=== PATIENT | female | born 1935 | race Caucasian/White ===

== ENCOUNTER → 2024-03-01 11:07 | Outpatient (REF) | payer OTHER, BC, SELFPAY ==
[2024-03-01 11:22] LABS: Hematocrit 42.1 % (37.0-47.0); Hemoglobin 14.9 g/dL (12.0-16.0); Mean Corp Hgb Conc. 35.4 g/dL (33.0-37.0); Mean Corpuscular Volume 93.3 fL (81.0-99.0); Platelet Count 204 10^3/uL (130-400); Red Blood Cell Count 4.51 10^6/uL (4.20-5.40); Red Cell Dist. Width 13.2 % (11.5-14.5); White Blood Cell Count 9.1 10^3/uL (4.8-10.8)
[2024-03-01 11:37] LABS: Blood Urea Nitrogen 21 mg/dl (7-17); Calcium 8.6 mg/dl (8.4-10.2); Carbon Dioxide 24 mmol/L (22-30); Chloride 102 mmol/L (98-107); Glucose 99 mg/dl (70-99); Magnesium 2.1 mg/dl (1.6-2.3); Potassium 4.4 mmol/L (3.5-5.1); Sodium 138 mmol/L (135-145); eGFR > 60.00
== END ==
LOC: OLABN 11:07
PROVIDERS: ATTENDING PHYSICIAN Student in an Organized Health Care Education/Training Program
DX: I48.20 Chronic atrial fibrillation, unspecified (principal)
CPT/HCPCS: 36415; 80048; 83735; 85027

== ENCOUNTER → 2024-03-13 11:28 | Outpatient (REF) | payer OTHER, BC, SELFPAY ==
[2024-03-13 12:04] LABS: Urine Albumin Negative (Neg - Trace); Urine Bilirubin Negative (Negative); Urine Character Slightly Cloudy (Clear); Urine Color Yellow; Urine Glucose Negative (Negative); Urine Ketone Negative (Negative); Urine Leukocyte Trace (Negative); Urine Nitrite Negative (Negative); Urine Occult Blood Negative (Negative); Urine Specific Gravity 1.015 (<1.030); Urine Urobilinogen Negative (Neg - 1+)
[2024-03-13 12:24] LABS: Urine Amorphous Seen; Urine Squamous Cell >30 /LPF (Few)
[2024-03-13 12:25] LABS: Urine Bacteria Few (Negative)
== END ==
LOC: OLABN 11:28
PROVIDERS: ATTENDING PHYSICIAN Student in an Organized Health Care Education/Training Program
DX: R30.9 Painful micturition, unspecified (principal)
CPT/HCPCS: 81003; 81015; 87086

== ENCOUNTER → 2024-03-14 19:10 | Outpatient (REF) | payer OTHER, SELFPAY ==
[2024-03-15 13:22] LABS: Urine Albumin Negative (Neg - Trace); Urine Bilirubin Negative (Negative); Urine Character Clear (Clear); Urine Color Yellow; Urine Glucose Negative (Negative); Urine Ketone Negative (Negative); Urine Leukocyte 1+ (Negative); Urine Nitrite Negative (Negative); Urine Occult Blood Negative (Negative); Urine Urobilinogen Negative (Neg - 1+)
[2024-03-15 14:15] LABS: Urine Amorphous Seen; Urine Squamous Cell >30 /LPF (Few)
[2024-03-15 14:16] LABS: Urine Red Blood Cell 0-2 /HPF (0-2)
== END ==
LOC: OLABN 19:10
PROVIDERS: ATTENDING PHYSICIAN Student in an Organized Health Care Education/Training Program
DX: R30.9 Painful micturition, unspecified (principal); R35.0 Frequency of micturition
CPT/HCPCS: 81003; 81015; 87086

== ENCOUNTER → 2024-03-30 10:52 | Outpatient (REF) | payer MEDICARE, BC, SELFPAY ==
[2024-03-30 13:44] LABS: Urine Albumin Negative (Neg - Trace); Urine Bilirubin Negative (Negative); Urine Character Clear (Clear); Urine Color Yellow; Urine Glucose Negative (Negative); Urine Ketone Negative (Negative); Urine Leukocyte Negative (Negative); Urine Nitrite Negative (Negative); Urine Occult Blood Negative (Negative); Urine Specific Gravity 1.015 (<1.030); Urine Urobilinogen Negative (Neg - 1+)
== END ==
LOC: OLABN 10:52
PROVIDERS: ATTENDING PHYSICIAN Student in an Organized Health Care Education/Training Program
DX: R30.9 Painful micturition, unspecified (principal); R35.0 Frequency of micturition
CPT/HCPCS: 81003; 87086

== ENCOUNTER → 2024-06-16 14:35 | Outpatient (REF) | payer MEDICARE, BC, SELFPAY ==
[2024-06-17 11:30] LABS: Urine Albumin 2+ (Neg - Trace); Urine Bilirubin Negative (Negative); Urine Character Clear (Clear); Urine Color Yellow; Urine Glucose Negative (Negative); Urine Ketone Negative (Negative); Urine Leukocyte 2+ (Negative); Urine Nitrite Negative (Negative); Urine Occult Blood Negative (Negative); Urine Specific Gravity 1.025 (<1.030); Urine Urobilinogen 1+ (Neg - 1+)
[2024-06-17 12:07] LABS: Urine Calcium Oxalate Crystals Present; Urine Squamous Cell >30 /LPF (Few); Urine Urothelial Cell 0-2 /LPF (FEW)
[2024-06-17 12:08] LABS: Urine Bacteria Many (Negative); Urine Red Blood Cell 0-2 /HPF (0-2)
== END ==
LOC: OLABN 14:35
PROVIDERS: ATTENDING PHYSICIAN Student in an Organized Health Care Education/Training Program
DX: R35.0 Frequency of micturition (principal)
CPT/HCPCS: 81003; 81015; 87086

== ENCOUNTER → 2024-06-17 10:25 | Outpatient (REF) | payer MEDICARE, BC, SELFPAY ==
[2024-06-17 12:16] LABS: % Basophils 0.8 % (0-2); % Immature Granulocytes 0.2 % (0-0.5); % Lymphocytes 32.8 % (20.5-51.1); % Monocytes 12.7 % (1.7-9.3); % Neutrophils 51.5 % (42.2-75.2); Absolute Basophils 0.1 10^3/uL (0-0.2); Absolute Eosinophils 0.1 10^3/uL (0-0.7); Absolute Monocytes 0.8 10^3/uL (0.1-0.6); Absolute Neutrophils 3.1 10^3/uL (1.4-6.5); Hemoglobin 13.9 g/dL (12.0-16.0); Mean Corp Hgb Conc. 34.8 g/dL (33.0-37.0); Mean Corpuscular Hgb 33.3 pg (27.0-31.0); Mean Corpuscular Volume 95.7 fL (81.0-99.0); Nucleated Red Blood Cells % 0 %; Platelet Count 182 10^3/uL (130-400); Red Blood Cell Count 4.18 10^6/uL (4.20-5.40); Red Cell Dist. Width 14.6 % (11.5-14.5)
[2024-06-17 12:17] LABS: Blood Urea Nitrogen 14 mg/dl (7-17); Calcium 8.9 mg/dl (8.4-10.2); Carbon Dioxide 25 mmol/L (22-30); Chloride 105 mmol/L (98-107); Glucose 76 mg/dl (70-99); Potassium 4.4 mmol/L (3.5-5.1); Sodium 137 mmol/L (135-145); eGFR > 60.00
== END ==
LOC: OLABN 10:25
PROVIDERS: ATTENDING PHYSICIAN Student in an Organized Health Care Education/Training Program
DX: I48.91 Unspecified atrial fibrillation (principal)
CPT/HCPCS: 36415; 80048; 85025

== ENCOUNTER 2024-07-20 00:56 | Emergency (ER) | payer MEDICARE, BC, SELFPAY ==
[2024-07-20 00:58] VITALS: BP 158/79
[2024-07-20 01:00] VITALS: BP 158/79
[2024-07-20 02:02] VITALS: BP 146/83
--- NOTE | 2024-07-20 02:28 | ED.GENMED ---
History of Present Illness
General
Chief Complaint: Fall
Source: patient, ambulance crew and retirement
Exam Limitations: none
Time Seen by Provider: 07/20/24 01:30
Nursing documentation reviewed up to this point in time: agreed with
History of Present Illness
History of Present Illness:
Patient was walking to bathroom with staff when she fell. Hit back of head on floor. No LOC. Transported to ED via EMS for post fall eval.
Past History
Past History
ED Past Medical History: Psychiatric (Dementia)
Review of Systems
Review of Systems
Allergies reviewed?: Yes
All Other Systems: ROS reviewed and negative except as documented in HPI and ROS
Constitutional: Reports no symptoms
EENT: Reports no symptoms
Respiratory: Reports no symptoms
Cardiac: Reports no symptoms
ABD/GI: Reports no symptoms
: Reports no symptoms
Musculoskeletal: Reports no symptoms
Skin: Reports no symptoms
Neurological: Reports no symptoms
Psychiatric: Reports no symptoms
Phy Exam
General Physical Exam
General Presentation: well appearing and no apparent distress
General age: appears stated age
General Skin: warm and dry
General Habitus: normal
General Mental: alert
Cardiovascular Exam
Cardiovascular Exam: regular rate/rhythm
Pulmonary Exam
Pulmonary Exam: no respiratory distress and chest non tender
Gastrointestinal Exam
Gastrointestinal Exam: normal bowel sounds, non tender, soft, no organomegaly and non distended
Neurological Exam
Neurological Exam: alert, no motor deficits, no sensory deficits and speech normal
Musculoskeletal Exam
Musculoskeletal Exam: full ROM and neuro vasc intact
Skin Exam
Skin Exam: normal color, warm/dry and no rash
Psychiatric Exam
Psychiatric Exam: normal mood/affect
Course
Orders/Labs/Results
Orders:
Orders
07/20/24 01:06
CT Head W/o Iv Contrast Urgent
Comment:
Reason For Exam: head strike on eliquis
07/20/24 01:14
CT Cervical Spine W/o Iv Contr Urgent
Comment:
Reason For Exam: fall with head strike
Vital Signs
Initial and Last Documented VS:
Initial Vital Signs
Temp Pulse Resp BP Pulse Ox
98.6 F 86 16 158/79 97
07/20/24 00:58 07/20/24 00:58 07/20/24 00:58 07/20/24 00:58 07/20/24 00:58
Last Documented Vital Signs
Temp Pulse Resp BP Pulse Ox
98.6 F 74 14 143/71 94
07/20/24 00:58 07/20/24 03:00 07/20/24 03:00 07/20/24 03:00 07/20/24 03:00
*Radiology
Radiology exam reviewed: radiology read reviewed
*Pulse Oximetry
Patient hypoxic: no
*Critical Care Note
Total Time (30-74mins, 75-104mins- exclusive of procedures): Not Applicable
ED Attending Note
-
Portions of this chart may have been created with voice recognition software.� Occasional wrong word or��sound alike� substitutions may have occurred due to the inherent limitations of voice recognition software.
Discharge Plan
Departure
Patient Disposition: Home (Routine Discharge)
Date of Disposition: 07/20/24
Time of Disposition: 03:03
Patient with high blood pressure during this ER visit?: No
Condition: Good
Covid-19: Not Applicable
Discharge Problem:
Head injury
Instructions: Head Injury in Adults (DC)
Prescriptions:
No Action
acetaminophen 325 mg Tablet
650 mg PO BID
donepezil 5 mg Tablet
5 mg PO .0
trazodone 50 mg Tablet
50 mg PO HS
sertraline 50 mg Tablet
75 mg PO .0
Eliquis 5 mg Tablet
5 mg PO BID
Referrals:
Denver Duff DO [Family Provider] - Follow up in 2-3 days
Interventions
Interventions:
*Risk Screen - Suicide Last Done: 07/20/24 00:58
*General Assessment Last Done: 07/20/24 00:58
*Neglect/Abuse Screening Last Done: 07/20/24 01:20
*ED- Fall Risk Assessment Last Done: 07/20/24 01:20
*ED COVID-19 Vaccine History Last Done: 07/20/24 00:58
*Nursing Disposition Last Done: 07/20/24 04:27
ED-Musculoskeletal Assessment Last Done: 07/20/24 01:20
ED- Neurological Assessment Last Done: 07/20/24 01:20
ED-Skin Assessment Last Done: 07/20/24 01:20
Discharge Date and Time
Discharge Date/Time: 07/20/24 04:29
Print Language: SLOVAK
[2024-07-20 03:00] VITALS: BP 143/71
== END 2024-07-20 04:29 ==
LOC: EMR 00:56
PROVIDERS: EMERGENCY PHYSICIAN Emergency Medicine; FAMILY PHYSICIAN Student in an Organized Health Care Education/Training Program
DX: S09.90XA Unspecified injury of head, initial encounter (principal); W19.XXXA Unspecified fall, initial encounter; F03.90 Unspecified dementia, unspecified severity, without behavioral disturbance, psychotic disturbance, mood disturbance, and anxiety; Z79.01 Long term (current) use of anticoagulants
CPT/HCPCS: 99284; 70450; 72125

== ENCOUNTER → 2024-07-20 09:42 | Outpatient (REF) | payer MEDICARE, BC, SELFPAY ==
[2024-07-20 10:00] LABS: % Basophils 0.3 % (0-2); % Eosinophils 1.1 % (0-6); % Immature Granulocytes 0.2 % (0-0.5); % Lymphocytes 28.8 % (20.5-51.1); % Monocytes 11.9 % (1.7-9.3); % Neutrophils 57.7 % (42.2-75.2); Absolute Eosinophils 0.1 10^3/uL (0-0.7); Absolute Lymphocytes 1.9 10^3/uL (1.2-3.4); Absolute Monocytes 0.8 10^3/uL (0.1-0.6); Absolute Neutrophils 3.7 10^3/uL (1.4-6.5); Hematocrit 40.8 % (37.0-47.0); Hemoglobin 14.2 g/dL (12.0-16.0); Mean Corp Hgb Conc. 34.8 g/dL (33.0-37.0); Mean Corpuscular Hgb 33.2 pg (27.0-31.0); Mean Corpuscular Volume 95.3 fL (81.0-99.0); Nucleated Red Blood Cells % 0 %; Platelet Count 166 10^3/uL (130-400); Red Blood Cell Count 4.28 10^6/uL (4.20-5.40); Red Cell Dist. Width 14.3 % (11.5-14.5); White Blood Cell Count 6.5 10^3/uL (4.8-10.8)
[2024-07-20 10:22] LABS: Blood Urea Nitrogen 21 mg/dl (7-17); Carbon Dioxide 27 mmol/L (22-30); Chloride 102 mmol/L (98-107); Glucose 84 mg/dl (70-99); Potassium 4.1 mmol/L (3.5-5.1); Sodium 136 mmol/L (135-145); eGFR > 60.00
[2024-07-20 18:06] LABS: Urine Albumin Negative (Neg - Trace); Urine Bilirubin Negative (Negative); Urine Character Clear (Clear); Urine Color Yellow; Urine Glucose Negative (Negative); Urine Ketone Negative (Negative); Urine Leukocyte 2+ (Negative); Urine Nitrite Negative (Negative); Urine Occult Blood 1+ (Negative); Urine Specific Gravity 1.015 (<1.030); Urine Urobilinogen Negative (Neg - 1+)
[2024-07-20 18:21] LABS: Urine Squamous Cell >30 /LPF (Few)
[2024-07-20 18:22] LABS: Urine Bacteria Few (Negative); Urine Calcium Oxalate Crystals Seen; Urine Red Blood Cell 0-2 /HPF (0-2)
== END ==
LOC: OLABN 09:42
PROVIDERS: ATTENDING PHYSICIAN Student in an Organized Health Care Education/Training Program
DX: I48.20 Chronic atrial fibrillation, unspecified (principal); R53.1 Weakness
CPT/HCPCS: 36415; 80048; 81003; 81015; 85025; 87086

== ENCOUNTER 2025-03-28 11:39 | Emergency (ER) | payer MEDICARE, BC, SELFPAY ==
[2025-03-28 11:43] VITALS: BP 144/82
[2025-03-28 12:06] LABS: Hematocrit 45.3 % (37.0-47.0); Hemoglobin 15.5 g/dL (12.0-16.0); Mean Corp Hgb Conc. 34.2 g/dL (33.0-37.0); Mean Corpuscular Volume 96.8 fL (81.0-99.0); Nucleated Red Blood Cells % 0 %; Platelet Count 172 10^3/uL (130-400); Red Cell Dist. Width 13.7 % (11.5-14.5)
[2025-03-28 12:29] LABS: ALT (SGPT) 16 U/L (0-35); AST (SGOT) 21 U/L (14-36); Albumin 3.8 g/dl (3.5-5.0); Alkaline Phosphatase 53 U/L (38-126); Blood Urea Nitrogen 13 mg/dl (7-17); Calcium 8.9 mg/dl (8.4-10.2); Carbon Dioxide 30 mmol/L (22-30); Chloride 104 mmol/L (98-107); Glucose 97 mg/dl (70-99); Potassium 4.3 mmol/L (3.5-5.1); Sodium 137 mmol/L (135-145); Total Protein 7.0 g/dl (6.3-8.2); eGFR > 60.00
--- NOTE | 2025-03-28 14:45 | ED.GENMED ---
History of Present Illness
General
Chief Complaint: Heart Rate Problem
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
Time Seen by Provider: 03/28/25 12:41
History of Present Illness
History of Present Illness:
Note:
CHIEF COMPLAINT(S)
The patient was brought to the emergency department from a halfway for evaluation, with documented bradycardia at the facility, and confusion.
HISTORY OF PRESENT ILLNESS
The patient is an 89-year-old female who was brought to the emergency department from a halfway with a noted heart rate of 38 beats per minute at the facility. She was described as confused and disoriented, lacking awareness of her current
location and time. The patient seemed confused about the reason for her presence and had no recollection of events leading to her current state. Clinically, no acute distress was noted, and she denied any chest pain, and exhibited no significant
discomfort. Despite confusion, she was alert during the assessment.
PAST MEDICAL AND SURGICAL HISTORY
The patient is under a [place] [facility] with limitations, indicating a Do Not Resuscitate (DNR) order with restricted interventions like IV treatments but not mechanical ventilation. There were stipulations on the limited use
of antibiotics and no artificial nutrition.
PHYSICAL EXAM
General: Alert, confused, disoriented to place and time, not in acute distress.
Cardiovascular: Regular heart rhythm, presence of an S3 heart sound, no significant murmurs.
Musculoskeletal: Lower extremities show no edema, extremities are warm and well-perfused.
Extremities warm and well-perfused
No focal motor deficits
Cranial nerves grossly intact
Abdomen nondistended
PLAN
The patients care is governed by advanced directives indicating limited interventions, including no mechanical ventilation and restricted use of antibiotics. Further plan entails discussions with halfway for patient status and her brother as
per the halfway report.
DIFFERENTIAL DIAGNOSIS
The Differential Diagnosis includes, in no particular order and is not limited to:
1. Bradycardia
2. Delirium
3. Dementia exacerbation
4. Medication side effects
5. Electrolyte imbalance
6. Dehydration
7. Infection (e.g., urinary tract infection, pneumonia)
8. Cardiac arrhythmia
9. Congestive heart failure
10. Hypothyroidism
EKG
My independent EKG interpretation is:
- Rhythm: Ventricular paced rhythm
- Arrhythmias: Occasional premature ventricular contractions (PVCs) observed
- Heart Rate: 70 bpm
- Other: No atrial fibrillation detected
- Comparison: No changes from the prior EKG
Disposition:
SUMMARY OF ENCOUNTER
The patient, an 89-year-old female, was brought to the emergency department due to suspected bradycardia after an initial assessment at the halfway measured a low heart rate. The halfway nurse expressed concerns about bradycardia based on
apical measurement without a nurse monitoring. Upon assessment by EMS, bradycardia was also noted, but no EKG was available from them. The patient displayed no acute complaints and was at her baseline state. Telemetry in the emergency department
identified occasional premature ventricular contractions (PVCs) but confirmed a paced ventricular rhythm. Interrogation of the pacemaker showed occasional bigeminy, which may have affected heart rate measurement. There was no indication of pacemaker
malfunction. The patients clinical status remained stable, and it was decided to proceed with discharge.
DISPOSITION
Discharge.
ASSESSMENT
Based on the present circumstances, transient heart rate irregularities possibly arising from ventricular bigeminy were considered. Bradycardia reported may have been affected by how heart rate was recorded.
PLAN
Discharge with instructions to follow up with her primary care physician or fiber optic technician to ensure continued pacemaker functionality and address any future symptoms.
INDEPENDENT REVIEW OF LABS AND INTERPRETATION OF TESTS
-My independent review of CBC is normal.
-My independent review of CMP is normal.
-My independent EKG interpretation is a ventricular paced rhythm, occasional PVCs, no changes from prior EKG.
MEDICAL DECISION MAKING
- Complexity of Data Reviewed: Chronic conditions affecting care include advanced directives with a DNR; differential diagnosis considered includes bradycardia, delirium, dementia exacerbation, medication side effects, electrolyte imbalance,
dehydration, infection, cardiac arrhythmia, congestive heart failure, and hypothyroidism.
- Data:
Category 1:
Non-emergency department records reviewed included consultation with the halfway staff who reported the initial bradycardia concern based on manual apical pulse count. Clinical information from an independent historian was brought from the
nursing staff at the facility.
Category 2:
My independent interpretation of the telemetry monitoring confirmed paced ventricular rhythm with occasional PVCs, not reflecting any atrial fibrillation.
Category 3:
Management of the patients care was discussed with the nurse at the halfway to validate observations and ensure accurate communication regarding discharge readiness and future monitoring needs.
DIAGNOSIS
- Ventricular Bigeminy, I49.3.
- Cardiac Dysrhythmia, I49.9.
- Premature ventricular contractions
Past History
Past History
ED Past Medical History: Psychiatric (Dementia)
Phy Exam
Physical Exam
Physical Exam:
.
Course
Orders/Labs/Results
Orders:
Orders
03/28/25 11:47
Electrocardiogram (*1) Urgent
Reason for Study: Bradycardia / Tachycardia
03/28/25 11:48
EKG- Treatment ONCE
03/28/25 11:49
CMP [Comprehensive Metabolic Panel] Urgent
Complete Blood Count/With Diff Urgent
03/28/25 12:44
pacemaker [Interrogate Pacemaker- Treatment] ONCE
Abnormal Lab Results
03/28/25
11:49
MCH 33.1 H pg
(27.0-31.0)
Absolute Monos (auto) 0.9 H 10^3/uL
(0.1-0.6)
Monocytes % 11.2 H %
(1.7-9.3)
03/28/25 11:49
03/28/25 11:49
Vital Signs
Initial and Last Documented VS:
Initial Vital Signs
Temp Pulse Resp BP Pulse Ox
97.7 F 66 18 144/82 95
03/28/25 11:43 03/28/25 11:43 03/28/25 11:43 03/28/25 11:43 03/28/25 11:43
Last Documented Vital Signs
Temp Pulse Resp BP Pulse Ox
97.7 F 74 18 138/78 97
03/28/25 11:43 03/28/25 18:00 03/28/25 18:00 03/28/25 18:00 03/28/25 18:00
*Pulse Oximetry
SaO2: 95
Oxygen Mode of Delivery: Room air
Patient hypoxic: no
*Critical Care Note
Total Time (30-74mins, 75-104mins- exclusive of procedures): Not Applicable
ED Attending Note
-
Portions of this chart may have been created with voice recognition software.� Occasional wrong word or��sound alike� substitutions may have occurred due to the inherent limitations of voice recognition software.
Discharge Plan
Departure
Patient Disposition: Home (Routine Discharge)
Date of Disposition: 03/28/25
Time of Disposition: 14:57
Patient with high blood pressure during this ER visit?: No
Discharge Problem:
Frequent PVCs
Instructions: Palpitations (DC)
Prescriptions:
No Action
acetaminophen 325 mg Tablet
650 mg PO BID
donepezil 5 mg Tablet
5 mg PO .1830
trazodone 50 mg Tablet
50 mg PO HS
sertraline 50 mg Tablet
75 mg PO .1830
Eliquis 5 mg Tablet
5 mg PO BID
Referrals:
UNKNOWN - PT DOES,NOT KNOW [Family Provider]
Activity Restrictions/Additional Instructions:
Please see your doctor in follow-up in the next 1 week. Continue current medications. Return immediately for changes in mentation, weakness of any kind or any other concerns.
Interventions
Interventions:
*General Assessment Last Done: 03/28/25 11:43
*Neglect/Abuse Screening Last Done: 03/28/25 17:36
*ED- Fall Risk Assessment Last Done: 03/28/25 16:21
*ED COVID-19 Vaccine History Last Done: 03/28/25 16:07
*ED Influenza Vaccine History Last Done: 03/28/25 16:07
*Nursing Disposition Last Done: 03/28/25 18:36
ED- Cardiac Assessment Last Done: 03/28/25 12:18
ED- Pulmonary Assessment Last Done: 03/28/25 12:18
Discharge Date and Time
Discharge Date/Time: 03/28/25 18:25
Print Language: SPANISH
[2025-03-28 16:05] VITALS: BP 147/85
[2025-03-28 18:00] VITALS: BP 138/78
== END 2025-03-28 18:25 | disposition home or self-care (01) ==
LOC: EMR 11:39
PROVIDERS: Emergency Medicine; EMERGENCY PHYSICIAN Emergency Medicine
DX: I49.3 Ventricular premature depolarization (principal); F03.90 Unspecified dementia, unspecified severity, without behavioral disturbance, psychotic disturbance, mood disturbance, and anxiety; Z95.0 Presence of cardiac pacemaker; Z66 Do not resuscitate
CPT/HCPCS: 99284; 80053; 85025; 93005